=== PATIENT | female | born 1995 | race Caucasian/White ===

== ENCOUNTER 2020-06-17 13:06 | Emergency (ER) | payer MEDICAID ==
[~2020-06-17] VITALS: Ht 167.6 cm; Wt 144.9 kg
[~2020-06-17 13:06] MED LIST: FAMO-128 PO
[2020-06-17 13:22] VITALS: BP 130/82
== END 2020-06-17 14:46 | disposition home or self-care (01) ==
LOC: ER 13:07
DX: S93.601A Unspecified sprain of right foot, initial encounter (principal); M77.31 Calcaneal spur, right foot; Z90.49 Acquired absence of other specified parts of digestive tract; Z88.5 Allergy status to narcotic agent; Z88.2 Allergy status to sulfonamides; Z88.1 Allergy status to other antibiotic agents; Z88.8 Allergy status to other drugs, medicaments and biological substances; X58.XXXA Exposure to other specified factors, initial encounter; Y93.89 Activity, other specified; Y92.89 Other specified places as the place of occurrence of the external cause; Y99.8 Other external cause status
CPT/HCPCS: 73630; 99283

== ENCOUNTER 2021-05-02 18:31 | Emergency (ER) | payer MEDICAID ==
[~2021-05-02] VITALS: Ht 170.2 cm; Wt 140.0 kg
[2021-05-02 18:53] VITALS: BP 115/82
[2021-05-02 19:56] LABS: CLARITY,URINE CLEAR (Clear); COLOR,URINE YELLOW (Yellow); GLUCOSE, URINE NEGATIVE (Neg); KETONES,URINE NEGATIVE (Neg); LEUKOCYTE ESTERASE ,URINE TRACE (Neg); NITRITES, URINE NEGATIVE (Neg); OCCULT BLOOD,URINE NEGATIVE (Neg); PH,URINE 6.5 (4.8-8.0); PROTEIN,URINE NEGATIVE (Neg); UROBILINOGEN,URINE 0.2 E.U/dL (0.2-1.0)
[2021-05-02 20:07] LABS: UA COLLECTION TYPE CLN CATCH MIDSTREAM
[2021-05-02 20:08] LABS: BACTERIA,URINE FEW /HPF (Neg); RBC,URINE NONE SEEN /HPF (0-2); SQUAMOUS EPITHELIAL CELL,UR FEW /LPF (FEW)
[2021-05-02] MEDS ORDERED: TETanus/Pertussis (Acell)/Diphther VAC/PF (Tdap-Adult) 0.5ml syringe IMVAC ONE (20:45)
[2021-05-02] MEDS ORDERED: predniSONE 20 mg tablet PO ONE (21:00)
[2021-05-02] MEDS ORDERED: diazepam 5mg tablet PO ONE (21:00)
[2021-05-02] MEDS ORDERED: DIAZ5TAB PO (21:05)
[2021-05-02] MEDS ORDERED: PRED20TA PO (21:05)
== END 2021-05-02 22:17 | disposition home or self-care (01) ==
LOC: ER 18:31
DX: S39.012A Strain of muscle, fascia and tendon of lower back, initial encounter (principal); M70.62 Trochanteric bursitis, left hip; G89.29 Other chronic pain; Z90.49 Acquired absence of other specified parts of digestive tract; Z88.1 Allergy status to other antibiotic agents; Z88.8 Allergy status to other drugs, medicaments and biological substances; Z91.030 Bee allergy status; Z79.899 Other long term (current) drug therapy; W19.XXXA Unspecified fall, initial encounter; Y93.89 Activity, other specified; Y92.89 Other specified places as the place of occurrence of the external cause; Y99.8 Other external cause status
CPT/HCPCS: 81001; 87088; 99283; J7512